=== PATIENT | male | born 1985 | race Caucasian/White ===

== ENCOUNTER 2016-09-12 22:58 | Emergency (ER) | payer OTHER ==
[2016-09-12 23:17] VITALS: RESP 16; TEMP 98
--- NOTE | 2016-09-12 23:59 | XR ---
EXAMINATION TYPE: XR chest 2V DATE OF EXAM: 09/12/2016 11:53 PM COMPARISON: NONE HISTORY: Chest pain TECHNIQUE: Frontal and lateral views of the chest are obtained. FINDINGS: Heart and mediastinum are normal. Lungs are clear. Diaphragm is normal. Bony thorax is int act. There are chest leads. There is no sign of pleural effusion. IMPRESSION: Normal chest
[2016-09-13] MEDS ORDERED: DIAZEPAM 5 MG TAB PO STA (00:04)
[2016-09-13] MEDS ORDERED: Acetaminophen-Codeine 300-30mg TAB PO STA (00:04)
[2016-09-13] MEDS ORDERED: KETOROLAC 60 MG/2 ML VIAL IM STA (00:04)
--- NOTE | 2016-09-13 00:11 | ED ---
General Adult HPI - General Chief complaint: Chest Pain Stated complaint: Chest Pain Time Seen by Provider: 09/12/16 23:01 Source: patient, EMS, RN notes reviewed, old records reviewed Mode of arrival: EMS Limitations: no limitations - History of Present Illness Initial comments: This is a 31-year-old male ER for evaluation of pain. Patient coming in with chest pain. No history of heart disease. Patient's family if of cigarette or facility resistant outpatient substance abuse treatment. Patient's nurse at the wrist cough or congestion is no significant shortness of breath. No bowel pain nausea vomiting. No recent modifying factors for symptoms. Patient has no medications to take for pain. - Related Data Allergies Allergy/AdvReac Type Severity Reaction Status Date / Time codeine Allergy Severe Rash/Hives Verified 09/13/16 00:08 Review of Systems ROS Statement: Those systems with pertinent positive or pertinent negative responses have been documented in the HPI. ROS Other: All systems not noted in ROS Statement are negative. General Exam Limitations: no limitations General appearance: alert, in no apparent distress, anxious Head exam: Present: atraumatic, normocephalic, normal inspection Eye exam: Present: normal appearance, PERRL, EOMI. Absent: scleral icterus, conjunctival injection, periorbital swelling ENT exam: Present: normal exam, mucous membranes moist Neck exam: Present: normal inspection. Absent: tenderness, meningismus, lymphadenopathy Respiratory exam: Present: normal lung sounds bilaterally. Absent: respiratory distress, wheezes, rales, rhonchi, stridor Cardiovascular Exam: Present: regular rate, normal rhythm, normal heart sounds. Absent: systolic murmur, diastolic murmur, rubs, gallop, clicks GI/Abdominal exam: Present: soft, normal bowel sounds. Absent: distended, tenderness, guarding, rebound, rigid Extremities exam: Present: normal inspection, full ROM, normal capillary refill. Absent: tenderness, pedal edema, joint swelling, calf tenderness Back exam: Present: normal inspection Neurological exam: Present: alert, oriented X3, CN II-XII intact Psychiatric exam: Present: normal affect, normal mood Skin exam: Present: warm, dry, intact, normal color. Absent: rash Course Vital Signs 09/12/16 23:12 Temperature 98 F Pulse Rate 70 Respiratory 16 Rate Blood Pressure 142/97 O2 Sat by Pulse 98 Oximetry - Reevaluation(s) Reevaluation #1: 09/13/16 00:10 Patient is in no acute distress Medical Decision Making - Medical Decision Making 31 male ER for evaluation of chest pain. Patient coming in the evaluation from [facility], patient states he has chest pain feels like it may be his heart, EKG and x-ray are normal, pain is improved, patient can be discharged home - Radiology Data Radiology results: report reviewed (Chest x-ray two-view is negative for acute disease), image reviewed Disposition Clinical Impression: Chest pain Disposition: HOME SELF-CARE Condition: Good Instructions: Chest Pain (ED), Costochondritis (ED) Referrals: None,Stated [Primary Care Provider] - 1-2 days
[2016-09-13 03:11] VITALS: BP 145/77; PULSE 68
== END 2016-09-13 03:12 | disposition home or self-care (01) ==
LOC: EC 22:58
DX: M94.0 Chondrocostal junction syndrome [Tietze] (principal); R07.9 Chest pain, unspecified; Z88.5 Allergy status to narcotic agent
CPT/HCPCS: 99285 ×2; 96372 ×2; 93005; 71020; J1885